=== PATIENT | female | born 1970 | race Caucasian/White ===

== ENCOUNTER → 2016-05-24 | Outpatient (REF) | payer BC | LOC: M LAB REF 13:00 | PROVIDERS: ATTEND Nurse Practitioner Women's Health | DX: M54.5 Low back pain (principal); Z12.4 Encounter for screening for malignant neoplasm of cervix ==

== ENCOUNTER → 2016-09-19 | Outpatient (REF) | payer BC ==
[2016-09-19 11:44] LABS: BASO % 0.6 % (0.0-1.0); EOS # 0.4 K/mm3 (0.0-0.50); EOS % 4.3 % (0.0-3.0); LARGE UNSTAINED CELL # 0.1 K/mm3 (0.0-0.4); LARGE UNSTAINED CELL % 1.1 % (0.0-4.0); LYMPH # 1.7 K/mm3 (1.5-4.5); LYMPH % 20.8 % (24.0-44.0); MEAN CORPUSCULAR HEMOGLOBIN 30.6 pg (27.0-33.0); MEAN CORPUSCULAR VOLUME 90.1 fl (80.0-96.0); MONO # 0.4 K/mm3 (0.0-0.8); MONO % 5.2 % (0.0-5.0); NEUTROPHILS # 5.5 K/mm3 (1.8-7.7); PLATELET COUNT, AUTOMATED 248 k/mm3 (150-450); RED CELL DISTRIBUTION WIDTH 12.8 % (11.5-14.5); WHITE BLOOD COUNT 8.1 K/mm3 (4.0-10.0)
[2016-09-19 12:14] LABS: ERYTHROCYTE SEDIMENTATION RATE 4 mm/hr (0-20)
[2016-09-19 12:40] LABS: ALBUMIN/GLOBULIN RATIO 1.18 (1.00-1.93); ALKALINE PHOSPHATASE 57 U/L (45-117); ALT/SGPT 22 U/L (12-78); ANION GAP 6 MEQ/L (8-16); AST/SGOT 13 U/L (15-37); BILIRUBIN,TOTAL 0.9 MG/DL (0.2-1.0); BLOOD UREA NITROGEN 11 MG/DL (7-18); CALCIUM LEVEL 8.8 MG/DL (8.5-10.1); CARBON DIOXIDE LEVEL 30 MEQ/L (21-32); CHLORIDE LEVEL 103 MEQ/L (98-107); CREATININE FOR GFR 0.77 MG/DL (0.55-1.02); GLOMERULAR FILTRATION RATE > 60.0 (>58); GLUCOSE, FASTING 81 MG/DL (70-105); POTASSIUM SERUM 3.9 MEQ/L (3.5-5.1); SODIUM LEVEL 139 MEQ/L (136-145); TOTAL PROTEIN 7.4 GM/DL (6.4-8.2)
== END ==
LOC: M LABNEURO 11:12
PROVIDERS: ATTEND Psychiatry & Neurology Neurology
DX: R51 Headache (principal)

== ENCOUNTER → 2017-04-30 | Outpatient (REF) | payer BC ==
[2017-04-30 16:04] LABS: HEMATOCRIT 36.9 % (36.0-47.0); HEMOGLOBIN 12.7 g/dl (12.0-16.0); MEAN CORPUSCULAR HEMOGLOBIN 28.8 pg (27.0-33.0); MEAN CORPUSCULAR HGB CONC 34.4 g/dl (32.0-36.5); MEAN CORPUSCULAR VOLUME 83.7 fl (80.0-96.0); PLATELET COUNT, AUTOMATED 246 10^3/uL (150-450); RED BLOOD COUNT 4.41 10^6/uL (4.00-5.40); RED CELL DISTRIBUTION WIDTH 12.4 % (11.5-14.5); WHITE BLOOD COUNT 5.9 10^3/uL (4.0-10.0)
[2017-04-30 16:30] LABS: ALBUMIN/GLOBULIN RATIO 1.21 (1.00-1.93); ALKALINE PHOSPHATASE 66 U/L (45-117); ALT/SGPT 23 U/L (12-78); AMYLASE 49 U/L (25-115); ANION GAP 7 MEQ/L (8-16); AST/SGOT 19 U/L (7-37); BILIRUBIN,TOTAL 0.8 MG/DL (0.2-1.0); BLOOD UREA NITROGEN 14 MG/DL (7-18); CALCIUM LEVEL 8.6 MG/DL (8.5-10.1); CARBON DIOXIDE LEVEL 31 MEQ/L (21-32); CHLORIDE LEVEL 101 MEQ/L (98-107); CREATININE FOR GFR 0.97 MG/DL (0.55-1.30); GLOMERULAR FILTRATION RATE > 60.0 (>58); GLUCOSE, FASTING 95 MG/DL (70-100); POTASSIUM SERUM 3.6 MEQ/L (3.5-5.1); SODIUM LEVEL 139 MEQ/L (136-145); TOTAL PROTEIN 7.3 GM/DL (6.4-8.2)
[2017-04-30 16:33] LABS: ESTIMATED AVERAGE GLUCOSE 105 MG/DL (60-110); HEMOGLOBIN A1c 5.3 %
== END ==
LOC: M LABDRAW1 15:34
DX: R10.2 Pelvic and perineal pain (principal)
CPT/HCPCS: 82150

== ENCOUNTER → 2017-05-03 | Outpatient (CLI) | payer BC ==
[~2017-05-03] MED LIST: GASTROGRAFIN SOLUTION 30ML (Q9963) As Ordered; ISOVUE-370 76% 100ML VIAL (Q9967) As Ordered
== END ==
LOC: M RAD 13:41
DX: R10.9 Unspecified abdominal pain (principal)
CPT/HCPCS: Q9963

== ENCOUNTER → 2018-02-05 | Outpatient (REF) | payer BC ==
[2018-02-05 16:08] LABS: APPEARANCE, URINE CLEAR (CLEAR); BACTERIA, URINE AUTO NEGATIVE (NEGATIVE); BILIRUBIN, URINE AUTO NEGATIVE (NEGATIVE); BLOOD, URINE BLOOD NEGATIVE (NEGATIVE); COLOR, URINE YELLOW (YELLOW); GLUCOSE, URINE (UA) AUTO NEGATIVE (NEGATIVE); KETONE, URINE AUTO NEGATIVE (NEGATIVE); LEUKOCYTE ESTERASE, URINE AUTO NEGATIVE (NEGATIVE); MUCUS, URINE SMALL (NEGATIVE); NITRITE, URINE AUTO NEGATIVE (NEGATIVE); PROTEIN, URINE AUTO NEGATIVE (NEGATIVE); RBC, URINE AUTO 1 /HPF (0-3); SPECIFIC GRAVITY URINE AUTO 1.013 (1.002-1.035); SQUAMOUS EPITHELIAL CELL UR AU 1 /HPF (0-6); UROBILINOGEN, URINE AUTO 0.2 mg/dL (0.0-2.0); WBC, URINE AUTO 0 /HPF (0-3)
== END ==
LOC: M LAB REF 15:39
DX: N39.0 Urinary tract infection, site not specified (principal)

== ENCOUNTER → 2018-03-21 | Outpatient (REF) | payer BC | LOC: M LAB REF 11:59 | PROVIDERS: ATTEND Physician Assistant | DX: J02.9 Acute pharyngitis, unspecified (principal) ==

== ENCOUNTER → 2018-06-12 | Outpatient (CLI) | payer BC ==
[2018-06-12 08:12] LABS: HEMOGLOBIN 14.5 g/dl (12.0-15.5); MEAN CORPUSCULAR HEMOGLOBIN 31.4 pg (27.0-33.0); MEAN CORPUSCULAR HGB CONC 35.4 g/dl (32.0-36.5); MEAN CORPUSCULAR VOLUME 88.7 fl (80.0-96.0); PLATELET COUNT, AUTOMATED 273 10^3/uL (150-450); RED BLOOD COUNT 4.62 10^6/uL (4.00-5.40)
[2018-06-12 08:46] LABS: ALBUMIN 3.9 GM/DL (3.2-5.2); ALT/SGPT 29 U/L (12-78); BILIRUBIN,TOTAL 0.9 MG/DL (0.2-1.0); BLOOD UREA NITROGEN 12 MG/DL (7-18); CALCIUM LEVEL 8.7 MG/DL (8.5-10.1); CARBON DIOXIDE LEVEL 31 MEQ/L (21-32); CHLORIDE LEVEL 102 MEQ/L (98-107); CHOLESTEROL LEVEL 162 MG/DL (<200); CHOLESTEROL RISK RATIO 2.382 (<5); GLOMERULAR FILTRATION RATE > 60.0 (>58); GLUCOSE, FASTING 93 MG/DL (70-100); HDL CHOLESTEROL 68 MG/DL (>40); IRON (FE) 89 UG/DL (50-170); LDL CHOLESTEROL 83 MG/DL (<100); NON-HDL-C 94 MG/DL; PERCENT SATURATION 21.5 % (13.2-45.0); SODIUM LEVEL 140 MEQ/L (136-145); TOTAL IRON BINDING CAPACITY 413 UG/DL (250-450); TOTAL PROTEIN 7.2 GM/DL (6.4-8.2); TRIGLYCERIDES LEVEL 57 MG/DL (<150)
[2018-06-12 08:48] LABS: TOTAL 25(OH) VITAMIN D 52.7 NG/ML (30.0-100.0)
[2018-06-12 08:49] LABS: FOLLICLE STIMULATING HORMONE 12.2 mIU/mL; LUTEINIZING HORMONE 5.4 mIU/mL; VITAMIN B12 LEVEL 954 PG/ML (247-911)
== END ==
LOC: M LAB 07:29
PROVIDERS: ATTEND Family Medicine
DX: I10 Essential (primary) hypertension (principal); E03.9 Hypothyroidism, unspecified

== ENCOUNTER → 2018-07-26 | Outpatient (CLI) | payer BC ==
[2018-07-26 08:04] LABS: HEMATOCRIT 38.4 % (36.0-47.0); HEMOGLOBIN 13.3 g/dl (12.0-15.5); MEAN CORPUSCULAR HEMOGLOBIN 30.6 pg (27.0-33.0); MEAN CORPUSCULAR HGB CONC 34.6 g/dl (32.0-36.5); MEAN CORPUSCULAR VOLUME 88.5 fl (80.0-96.0); PLATELET COUNT, AUTOMATED 247 10^3/uL (150-450); RED BLOOD COUNT 4.34 10^6/uL (4.00-5.40); WHITE BLOOD COUNT 5.8 10^3/uL (4.0-10.0)
[2018-07-26 08:18] LABS: HEMOGLOBIN A1c 5.1 %
--- NOTE | 2018-07-26 08:22 | REP ---
Clinical: Chest/ shoulder pain and history of primary hypertension. Comparison: 08/27/2015 . Technique: PA and lateral. Findings: The mediastinum and cardiac silhouette are normal. The lung thibodeaux are clear and without acute consolidation, effusion, or pneumothorax. The skeletal structures are intact and normal. Impression: 1. No acute cardiopulmonary process. Electronically Signed by Lopez Quiroz MD 07/26/2018 08:13 A
--- NOTE | 2018-07-26 08:24 | REP ---
Clinical: Bilateral shoulder pain . Technique: Internal rotation, external rotation, and Y view of the right and left shoulder . Findings: No acute fracture or dislocation. The acromioclavicular and glenohumeral joints are intact. No periarticular calcifications or degenerative changes are appreciated. Sub acromial space is normal. Surrounding soft tissues are unremarkable. Impression: Normal bilateral shoulder radiographs. Electronically Signed by Lopez Quiroz MD 07/26/2018 08:14 A
[2018-07-26 08:28] LABS: ERYTHROCYTE SEDIMENTATION RATE 8 mm/hr (0-20)
[2018-07-26 08:37] LABS: ALT/SGPT 31 U/L (12-78); BILIRUBIN,TOTAL 0.7 MG/DL (0.2-1.0); BLOOD UREA NITROGEN 10 MG/DL (7-18); CALCIUM LEVEL 8.5 MG/DL (8.5-10.1); CARBON DIOXIDE LEVEL 29 MEQ/L (21-32); CHLORIDE LEVEL 106 MEQ/L (98-107); CHOLESTEROL LEVEL 155 MG/DL (<200); CHOLESTEROL RISK RATIO 2.214 (<5); CREATININE FOR GFR 0.88 MG/DL (0.55-1.30); GLOMERULAR FILTRATION RATE > 60.0 (>58); GLUCOSE, FASTING 90 MG/DL (70-100); HDL CHOLESTEROL 70 MG/DL (>40); LDL CHOLESTEROL 73 MG/DL (<100); NON-HDL-C 85 MG/DL; POTASSIUM SERUM 3.9 MEQ/L (3.5-5.1); RHEUMATOID FACTOR QUANT < 10.0 IU/ML (<15.0); SODIUM LEVEL 141 MEQ/L (136-145); TOTAL PROTEIN 6.8 GM/DL (6.4-8.2); TRIGLYCERIDES LEVEL 59 MG/DL (<150)
--- NOTE | 2018-07-26 16:31 | ECGEPIP ---
Stationary ECG Study [facility] Test Date: 2018-07-26 Pat Name: ROSI CHAN Department: Room: - Gender: F Electrical Manager: : 1970 Requested By: Dominick Kathleen Order Number: [id number] Reading MD: Filiberto Wiley Measurements Intervals [place] Rate: 48 P: 31 TN: 179 QRS: 34 QRSD: 82 T: 44 QT: 476 QTc: 428 Interpretive Statements Sinus bradycardia Delayed anterior R wave progression No significant change when compared to prior tracing of 08/27/2015 Electronically Signed On 07-26-2018 16:30:42 EDT by Filiberto Wiley
== END ==
LOC: M LAB 07:01
PROVIDERS: ATTEND Family Medicine
DX: I10 Essential (primary) hypertension (principal); M06.9 Rheumatoid arthritis, unspecified; E03.9 Hypothyroidism, unspecified; M25.519 Pain in unspecified shoulder

== ENCOUNTER → 2018-10-07 | Outpatient (CLI) | payer BC ==
[2018-10-07 07:49] LABS: HEMATOCRIT 37.1 % (36.0-47.0); HEMOGLOBIN 12.7 g/dl (12.0-15.5); MEAN CORPUSCULAR HEMOGLOBIN 30.8 pg (27.0-33.0); MEAN CORPUSCULAR HGB CONC 34.2 g/dl (32.0-36.5); PLATELET COUNT, AUTOMATED 229 10^3/uL (150-450); RED BLOOD COUNT 4.12 10^6/uL (4.00-5.40); WHITE BLOOD COUNT 7.3 10^3/uL (4.0-10.0)
[2018-10-07 08:21] LABS: IRON (FE) 52 UG/DL (50-170); PERCENT SATURATION 13.4 % (13.2-45.0); RHEUMATOID FACTOR QUANT < 10.0 IU/ML (<15.0); TOTAL IRON BINDING CAPACITY 388 UG/DL (250-450); URIC ACID 4.5 MG/DL (2.6-6.0)
[2018-10-07 08:23] LABS: ERYTHROCYTE SEDIMENTATION RATE 9 mm/hr (0-20)
--- NOTE | 2018-10-07 09:51 | REP ---
Bilateral knees: Left knee five views : There is no fracture or dislocation. Mineralization and joint spaces are normal. There are no calcifications or foreign bodies. Impression: Negative left knee. Right knee five views : There is no fracture or dislocation. Mineralization and joint spaces are normal. There are no calcifications or foreign bodies. Impression: Negative right knee . Electronically Signed by Matheus Nova MD 10/07/2018 09:42 A
[2018-10-09 00:06] LABS: Lyme Disease IgG/IgM Antibodie <0.91 ISR (0.00-0.90); Lyme Disease IgM Ab Quantitati <0.80 index (0.00-0.79)
== END ==
LOC: M LAB 07:27
PROVIDERS: ATTEND Family Medicine
DX: D64.9 Anemia, unspecified (principal); M25.561 Pain in right knee; M25.562 Pain in left knee

== ENCOUNTER → 2018-11-01 | Outpatient (REF) | payer BC ==
[2018-11-01 11:39] LABS: APPEARANCE, URINE CLEAR (CLEAR); BACTERIA, URINE AUTO 1+ (NEGATIVE); BILIRUBIN, URINE AUTO NEGATIVE (NEGATIVE); BLOOD, URINE BLOOD NEGATIVE (NEGATIVE); COLOR, URINE YELLOW (YELLOW); GLUCOSE, URINE (UA) AUTO NEGATIVE (NEGATIVE); KETONE, URINE AUTO NEGATIVE (NEGATIVE); LEUKOCYTE ESTERASE, URINE AUTO NEGATIVE (NEGATIVE); NITRITE, URINE AUTO NEGATIVE (NEGATIVE); PROTEIN, URINE AUTO NEGATIVE (NEGATIVE); RBC, URINE AUTO 1 /HPF (0-3); SPECIFIC GRAVITY URINE AUTO 1.011 (1.002-1.035); SQUAMOUS EPITHELIAL CELL UR AU 1 /HPF (0-6); UROBILINOGEN, URINE AUTO 0.2 mg/dL (0.0-2.0); WBC, URINE AUTO 0 /HPF (0-3)
== END ==
LOC: M LAB REF 11:28
PROVIDERS: ATTEND Family Medicine
DX: N39.0 Urinary tract infection, site not specified (principal)

== ENCOUNTER → 2019-09-10 | Outpatient (REF) | payer BC ==
[2019-09-10 17:49] LABS: AMORPHOUS SEDIMENT LARGE (NEGATIVE); APPEARANCE, URINE TURBID (CLEAR); BACTERIA, URINE AUTO NEGATIVE (NEGATIVE); BILIRUBIN, URINE AUTO NEGATIVE (NEGATIVE); BLOOD, URINE BLOOD NEGATIVE (NEGATIVE); CALCIUM OXALATE CRYSTALS SMALL; COLOR, URINE AMBER (YELLOW); GLUCOSE, URINE (UA) AUTO NEGATIVE (NEGATIVE); KETONE, URINE AUTO NEGATIVE (NEGATIVE); LEUKOCYTE ESTERASE, URINE AUTO NEGATIVE (NEGATIVE); MUCUS, URINE LARGE (NEGATIVE); NITRITE, URINE AUTO NEGATIVE (NEGATIVE); PROTEIN, URINE AUTO NEGATIVE (NEGATIVE); RBC, URINE AUTO 1 /HPF (0-3); SPECIFIC GRAVITY URINE AUTO 1.025 (1.002-1.035); SQUAMOUS EPITHELIAL CELL UR AU 2 /HPF (0-6); UROBILINOGEN, URINE AUTO 0.2 mg/dL (0.0-2.0); WBC, URINE AUTO 1 /HPF (0-3)
== END ==
LOC: M LAB REF 17:00
PROVIDERS: ATTEND Obstetrics & Gynecology
DX: N39.0 Urinary tract infection, site not specified (principal)

== ENCOUNTER → 2020-07-13 | Outpatient (CLI) | payer BC ==
[2020-07-13 07:16] LABS: HEMOGLOBIN 13.6 g/dl (12.0-15.5); MEAN CORPUSCULAR HEMOGLOBIN 31.2 pg (27.0-33.0); MEAN CORPUSCULAR HGB CONC 34.9 g/dl (32.0-36.5); MEAN CORPUSCULAR VOLUME 89.4 fl (80.0-96.0); PLATELET COUNT, AUTOMATED 246 10^3/uL (150-450); RED BLOOD COUNT 4.36 10^6/uL (4.00-5.40); WHITE BLOOD COUNT 6.6 10^3/uL (4.0-10.0)
[2020-07-13 07:38] LABS: HEMOGLOBIN A1c 4.8 %
[2020-07-13 07:56] LABS: ALBUMIN 3.8 GM/DL (3.2-5.2); ALT/SGPT 26 U/L (12-78); BILIRUBIN,TOTAL 0.8 MG/DL (0.2-1.0); BLOOD UREA NITROGEN 12 MG/DL (7-18); CALCIUM LEVEL 8.8 MG/DL (8.5-10.1); CARBON DIOXIDE LEVEL 31 MEQ/L (21-32); CHLORIDE LEVEL 105 MEQ/L (98-107); CHOLESTEROL LEVEL 147 MG/DL (<200); CHOLESTEROL RISK RATIO 1.909 (<5); CREATININE FOR GFR 0.79 MG/DL (0.55-1.30); GLOMERULAR FILTRATION RATE > 60.0 (>58); GLUCOSE, FASTING 94 MG/DL (70-100); HDL CHOLESTEROL 77 MG/DL (>40); LDL CHOLESTEROL 59 MG/DL (<100); NON-HDL-C 70 MG/DL; SODIUM LEVEL 142 MEQ/L (136-145); TOTAL PROTEIN 6.8 GM/DL (6.4-8.2); TRIGLYCERIDES LEVEL 54 MG/DL (<150)
[2020-07-13 10:44] LABS: TOTAL 25(OH) VITAMIN D 46.3 NG/ML (30.0-100.0)
== END ==
LOC: M LAB 06:50
PROVIDERS: ATTEND Family Medicine
DX: R53.83 Other fatigue (principal); I10 Essential (primary) hypertension; E03.9 Hypothyroidism, unspecified

== ENCOUNTER → 2020-10-11 | Outpatient (CLI) | payer BC ==
--- NOTE | 2020-10-11 16:04 | REP ---
INDICATION: EXCESSIVE BLEEDING, MENES. COMPARISON: 11/09/2016. TECHNIQUE: Transabdominal and transvaginal scanning performed. FINDINGS: Uterine dimensions are 8.4 x 4.1 x 6.5 cm. Endometrial echo is 4 mm in AP dimension and centrally placed. A hypoechoic area in the lower uterine segment demonstrates distal shadowing and measures 2.3 cm in diameter. This may represent a fibroid, adenomyoma or cervical mass. There is no well-defined junctional zone which may represent adenomyosis. The bladder measures 9.7 x 8.2 x 9.0cm. The right ovary has dimensions of 2.3 x 1.8 x 1.9 cm. It's Doppler flow is normal with a resistive index of 0.65. The left ovary dimensions are 4.4 x 1.9 x 2.6 cm. It's Doppler flow was normal with resistive index of 0.59. A dominant follicle of the left ovary measures 1.9 x 1.3 x 1.4 cm. No free fluid is seen in the cul-de-sac. IMPRESSION: Diffuse heterogeneous echotexture of the uterus with ill-defined junctional zone, may indicate adenomyosis. Focal hypoechoic area lower uterine segment 2.3 cm in diameter, may represent a myoma, adenomyoma or cervical mass. <Electronically signed by Matheus Augustin > 10/11/20 [id number]
== END ==
LOC: M RAD 14:44
PROVIDERS: ATTEND Obstetrics & Gynecology
DX: N92.1 Excessive and frequent menstruation with irregular cycle (principal); R93.89 Abnormal findings on diagnostic imaging of other specified body structures

== ENCOUNTER → 2020-11-14 | Outpatient (CLI) | payer BC ==
[~2020-11-14] MED LIST changes: +AMLO25TA PO; +ATOR1TAB21 PO; +D31000TA2 PO; +DEBL1TAB PO; +FLON1SPR; -GASTROGRAFIN SOLUTION 30ML (Q9963) As Ordered; +IFERCAP PO; -ISOVUE-370 76% 100ML VIAL (Q9967) As Ordered; +MAGN400C2 PO; +PANT40TA29 PO; +PROBCAP14 PO; +TOPR50TA PO; +VITA100T39 PO; +VITAMIN C PO; +VITMTA PO
--- NOTE | 2020-11-14 08:52 | REP ---
INDICATION: HTN, PREOP/ LABS 1ST, EKG 2ND, RAD 3RD COMPARISON: 07/26/2018 TECHNIQUE: PA and lateral. FINDINGS: The mediastinum and cardiac silhouette are normal. The lung thibodeaux are clear and without acute consolidation, effusion, or pneumothorax. The skeletal structures are intact and normal. IMPRESSION: No acute cardiopulmonary process. <Electronically signed by Lopez Quiroz > 11/14/20 [id number]
[2020-11-14 09:30] LABS: HEMOGLOBIN 10.3 g/dl (12.0-15.5); MEAN CORPUSCULAR HEMOGLOBIN 25.8 pg (27.0-33.0); MEAN CORPUSCULAR HGB CONC 31.2 g/dl (32.0-36.5); MEAN CORPUSCULAR VOLUME 82.7 fl (80.0-96.0); PLATELET COUNT, AUTOMATED 315 10^3/uL (150-450); RED BLOOD COUNT 3.99 10^6/uL (4.00-5.40); WHITE BLOOD COUNT 5.2 10^3/uL (4.0-10.0)
[2020-11-14 09:41] LABS: INR 1.01; PROTHROMBIN TIME 13.7 SECONDS (12.7-14.5)
[2020-11-14 10:02] LABS: ALBUMIN 3.8 GM/DL (3.2-5.2); ALT/SGPT 23 U/L (12-78); BILIRUBIN,TOTAL 0.6 MG/DL (0.2-1.0); BLOOD UREA NITROGEN 12 MG/DL (7-18); CALCIUM LEVEL 8.4 MG/DL (8.5-10.1); CARBON DIOXIDE LEVEL 29 MEQ/L (21-32); CHLORIDE LEVEL 110 MEQ/L (98-107); CHOLESTEROL LEVEL 146 MG/DL (<200); CHOLESTEROL RISK RATIO 2.433 (<5); CREATININE FOR GFR 0.82 MG/DL (0.55-1.30); GLOMERULAR FILTRATION RATE > 60.0 (>58); GLUCOSE, FASTING 90 MG/DL (70-100); HDL CHOLESTEROL 60 MG/DL (>40); IRON (FE) 32 UG/DL (50-170); LDL CHOLESTEROL 77 MG/DL (<100); NON-HDL-C 86 MG/DL; SODIUM LEVEL 143 MEQ/L (136-145); TOTAL IRON BINDING CAPACITY 459 UG/DL (250-450); TOTAL PROTEIN 7.2 GM/DL (6.4-8.2); TRIGLYCERIDES LEVEL 47 MG/DL (<150)
--- NOTE | 2020-11-15 08:12 | ECGEPIP ---
[facility] Test Date: 2020-11-14 Pat Name: ROSI CHAN Department: Room: - Gender: Female Dba Manager: DREW : 1970 Requested By: Dominick Kathleen Order Number: [id number] Reading MD: Pablo Romo Measurements Intervals [place] Rate: 50 P: 50 WI: 190 QRS: 53 QRSD: 70 T: 68 QT: 458 QTc: 417 Interpretive Statements sinus bradycardia Low limb voltages with QS pattern V1 and V2; body habitus versus pulmonary d disease. Rule out prior septal infarction Nonspecific ST/T wave abnormalities Subtle change in precordial lead placement but otherwise unchanged from 07/26/18 Electronically Signed on 11-15-2020 8:11:40 EDT by Pablo Romo
[2020-11-15 12:52] LABS: VITAMIN B12 LEVEL 612 PG/ML (247-911)
[2020-11-15 13:26] LABS: TOTAL 25(OH) VITAMIN D 51.8 NG/ML (30.0-100.0)
== END ==
LOC: M LAB 08:14
PROVIDERS: ATTEND Family Medicine
DX: Z01.818 Encounter for other preprocedural examination (principal); I10 Essential (primary) hypertension; R53.83 Other fatigue

== ENCOUNTER → 2020-11-20 | Outpatient (CLI) | payer BC | LOC: M LABSMTC 09:18 | PROVIDERS: ATTEND Anesthesiology | DX: Z01.818 Encounter for other preprocedural examination (principal); Z20.822 Contact with and (suspected) exposure to COVID-19 ==

== ENCOUNTER 2020-11-25 11:39 | Day surgery (SDC) | payer BC ==
[~2020-11-25] VITALS: Ht 152.4 cm; Wt 55.4 kg
[~2020-11-25 11:39] MED LIST changes: +LR 1,000 ML IV ONE
[2020-11-25] MEDS ORDERED: propofoL 200 MG/20 ML VIAL As Ordered ONE (14:12)
[2020-11-25] MEDS ORDERED: KETOROLAC 60MG 2ML VIAL As Ordered ONE (14:12)
[2020-11-25] MEDS ORDERED: ONDANSETRON 4MG/2ML VIAL As Ordered ONE (14:12)
[2020-11-25] MEDS ORDERED: MIDAZOLAM INJ 2MG/2ML VIAL (J2250 PER 1MG) As Ordered ONE (14:14)
[2020-11-25] MEDS ORDERED: LIDOCAINE 1% MDV 50ML VIAL As Ordered ONE (15:08)
[2020-11-25 16:30] VITALS: BP 143/71
--- NOTE | 2020-11-26 10:13 | RO ---
OPERATIVE NOTE DATE OF OPERATION: 11/25/2020 PREOPERATIVE DIAGNOSIS/INDICATION FOR SURGERY: Postmenopausal bleeding with abnormal sonogram showing 2 cm lesion. POSTOPERATIVE DIAGNOSIS: No significant lesion seen, visible atrophy. PROCEDURE: D and C, hysteroscopy, MyoSure with paracervical block. SURGEON: MINDA MARTINES MD [employer] SCENE TECHNICIAN: None. ANESTHESIA: Patient had sedation and then elected for local so had a paracervical block that I placed. BRIEF DESCRIPTION OF PROCEDURE AND FINDINGS: Haley was brought to the Operating Room, she was sedated, prepped and positioned and then a paracervical block placed at 2, 4, 8 and 10 on the cervix with 5 ccs each at each location, so a total of 20 ccs of 1% Lidocaine without. We then waited a full minute for that to set up and carefully grasped the cervix and dilated in order to allow introduction of the MyoSure hysteroscope which was then placed and the cervix visualized, and the endometrial cavity and endocervical cavity visualized. As documented in the operative photos, by in large the cavity was empty and atrophic. There is a little bit of erythema and friability consistent with her history of postmenopausal spotting and consistent with her postmenopausal state. There was no significant lesion. There were some folds within the cervix that I did picture. They have really a normal appearance, we did sample all that, and about a 2 mm endocervical polypoid shaped area which was resected and sent for path but did not look like a significant lesion to me. Of course, the cervix naturally has that folding appearance and so really she had a normal postmenopausal appearance on this hysteroscopy. We did use the MyoSure LITE to make sure we got a good sample especially since it is a little gentler when people are under local as well, so we absolutely sampled the endometrium, both anterior and posterior areas and endocervical areas. It was all sent together because there was not really anything visibly abnormal but we did want that microscopic check so we went ahead and sampled circumferentially both endometrially and endocervically and I did a final pass with a curette confirming normal cervical cry but was not aggressive about that again. Patient was nearly sedated and under local, and then the procedure was ended. ESTIMATED BLOOD LOSS FOR PROCEDURE: About 2 ml. FLUID REPLACEMENT: Crystalloid. COMPLICATIONS: None. CONDITION AND DISPOSITION: Haley tolerated the procedure well and was recovering in the Recovery Room in good condition.
== END 2020-11-25 16:56 | disposition home or self-care (01) ==
LOC: M SDC 11:39
PROVIDERS: ATTEND Obstetrics & Gynecology
DX: N85.8 Other specified noninflammatory disorders of uterus (principal); N95.0 Postmenopausal bleeding; I10 Essential (primary) hypertension; R94.31 Abnormal electrocardiogram [ECG] [EKG]; E78.00 Pure hypercholesterolemia, unspecified; R01.1 Cardiac murmur, unspecified; K21.9 Gastro-esophageal reflux disease without esophagitis; M54.2 Cervicalgia; F41.9 Anxiety disorder, unspecified; G43.909 Migraine, unspecified, not intractable, without status migrainosus; F17.290 Nicotine dependence, other tobacco product, uncomplicated; Z88.0 Allergy status to penicillin; Z88.1 Allergy status to other antibiotic agents; Z91.040 Latex allergy status; Z79.899 Other long term (current) drug therapy
CPT/HCPCS: 58558; 64435; 88305; 88313; 88342; J1885; J2250; J2405

== ENCOUNTER → 2020-12-29 | Outpatient (REF) | payer BC ==
[~2020-12-29] MED LIST changes: -LR 1,000 ML IV ONE
[2020-12-29 13:05] LABS: APPEARANCE, URINE CLEAR (CLEAR); BACTERIA, URINE AUTO NEGATIVE (NEGATIVE); BILIRUBIN, URINE AUTO NEGATIVE (NEGATIVE); BLOOD, URINE BLOOD NEGATIVE (NEGATIVE); COLOR, URINE YELLOW (YELLOW); GLUCOSE, URINE (UA) AUTO NEGATIVE (NEGATIVE); KETONE, URINE AUTO NEGATIVE (NEGATIVE); LEUKOCYTE ESTERASE, URINE AUTO NEGATIVE (NEGATIVE); MUCUS, URINE SMALL (NEGATIVE); NITRITE, URINE AUTO NEGATIVE (NEGATIVE); PROTEIN, URINE AUTO NEGATIVE (NEGATIVE); RBC, URINE AUTO 1 /HPF (0-3); SPECIFIC GRAVITY URINE AUTO 1.016 (1.002-1.035); SQUAMOUS EPITHELIAL CELL UR AU 1 /HPF (0-6); UROBILINOGEN, URINE AUTO 0.2 mg/dL (0.0-2.0); WBC, URINE AUTO 0 /HPF (0-3)
== END ==
LOC: M LAB REF 12:31
PROVIDERS: ATTEND Obstetrics & Gynecology
DX: N39.0 Urinary tract infection, site not specified (principal)

== ENCOUNTER → 2021-06-22 | Outpatient (REF) | payer OTHER ==
[~2021-06-22] MED LIST changes: -D31000TA2 PO; +VITA100093 PO
[2021-06-22 16:31] LABS: APPEARANCE, URINE HAZY (CLEAR); BACTERIA, URINE AUTO NEGATIVE (NEGATIVE); BILIRUBIN, URINE AUTO NEGATIVE (NEGATIVE); BLOOD, URINE BLOOD NEGATIVE (NEGATIVE); COLOR, URINE YELLOW (YELLOW); GLUCOSE, URINE (UA) AUTO NEGATIVE (NEGATIVE); KETONE, URINE AUTO NEGATIVE (NEGATIVE); LEUKOCYTE ESTERASE, URINE AUTO NEGATIVE (NEGATIVE); NITRITE, URINE AUTO NEGATIVE (NEGATIVE); PROTEIN, URINE AUTO NEGATIVE (NEGATIVE); RBC, URINE AUTO 0 /HPF (0-3); SPECIFIC GRAVITY URINE AUTO 1.009 (1.002-1.035); SQUAMOUS EPITHELIAL CELL UR AU 0 /HPF (0-6); UROBILINOGEN, URINE AUTO 0.2 mg/dL (0.0-2.0); WBC, URINE AUTO 0 /HPF (0-3)
== END ==
LOC: M LAB REF 16:08
PROVIDERS: ATTEND Obstetrics & Gynecology
DX: N30.00 Acute cystitis without hematuria (principal)

== ENCOUNTER → 2021-07-04 | Outpatient (REF) | payer OTHER ==
[2021-07-04 13:11] LABS: APPEARANCE, URINE HAZY (CLEAR); BACTERIA, URINE AUTO NEGATIVE (NEGATIVE); BILIRUBIN, URINE AUTO NEGATIVE (NEGATIVE); BLOOD, URINE BLOOD NEGATIVE (NEGATIVE); COLOR, URINE YELLOW (YELLOW); GLUCOSE, URINE (UA) AUTO NEGATIVE (NEGATIVE); KETONE, URINE AUTO NEGATIVE (NEGATIVE); LEUKOCYTE ESTERASE, URINE AUTO NEGATIVE (NEGATIVE); MUCUS, URINE SMALL (NEGATIVE); NITRITE, URINE AUTO NEGATIVE (NEGATIVE); PROTEIN, URINE AUTO NEGATIVE (NEGATIVE); RBC, URINE AUTO 0 /HPF (0-3); SPECIFIC GRAVITY URINE AUTO 1.018 (1.002-1.035); SQUAMOUS EPITHELIAL CELL UR AU 4 /HPF (0-6); UROBILINOGEN, URINE AUTO 0.2 mg/dL (0.0-2.0); WBC, URINE AUTO 1 /HPF (0-3)
== END ==
LOC: M LAB REF 12:21
PROVIDERS: ATTEND Obstetrics & Gynecology
DX: R39.89 Other symptoms and signs involving the genitourinary system (principal)

== ENCOUNTER → 2021-08-30 | Outpatient (CLI) | payer OTHER ==
[2021-08-30 08:17] LABS: HEMATOCRIT 41.7 % (36.0-47.0); HEMOGLOBIN 14.6 g/dl (12.0-15.5); MEAN CORPUSCULAR HEMOGLOBIN 31.2 pg (27.0-33.0); MEAN CORPUSCULAR VOLUME 89.1 fl (80.0-96.0); PLATELET COUNT, AUTOMATED 255 10^3/uL (150-450); RED BLOOD COUNT 4.68 10^6/uL (4.00-5.40); WHITE BLOOD COUNT 5.6 10^3/uL (4.0-10.0)
[2021-08-30 08:55] LABS: ALBUMIN 3.9 GM/DL (3.2-5.2); ALT/SGPT 21 U/L (12-78); BILIRUBIN,TOTAL 0.7 MG/DL (0.2-1.0); BLOOD UREA NITROGEN 13 MG/DL (7-18); CALCIUM LEVEL 9.1 MG/DL (8.5-10.1); CARBON DIOXIDE LEVEL 31 MEQ/L (21-32); CHLORIDE LEVEL 108 MEQ/L (98-107); CHOLESTEROL LEVEL 157 MG/DL (<200); CHOLESTEROL RISK RATIO 2.242 (<5); CREATININE FOR GFR 0.87 MG/DL (0.55-1.30); GLOMERULAR FILTRATION RATE > 60.0 (>58); GLUCOSE, FASTING 102 MG/DL (70-100); HDL CHOLESTEROL 70 MG/DL (>40); IRON (FE) 158 UG/DL (50-170); LDL CHOLESTEROL 77 MG/DL (<100); NON-HDL-C 87 MG/DL; PERCENT SATURATION 39.1 % (13.2-45.0); SODIUM LEVEL 143 MEQ/L (136-145); TOTAL IRON BINDING CAPACITY 404 UG/DL (250-450); TOTAL PROTEIN 7.1 GM/DL (6.4-8.2); TRIGLYCERIDES LEVEL 50 MG/DL (<150)
[2021-08-30 08:56] LABS: VITAMIN B12 LEVEL 783 PG/ML (247-911)
[2021-08-30 10:38] LABS: HEMOGLOBIN A1c 5.2 %
== END ==
LOC: M LAB 07:40
PROVIDERS: ATTEND Family Medicine
DX: D64.9 Anemia, unspecified (principal)

== ENCOUNTER → 2021-12-21 | Outpatient (CLI) | payer OTHER ==
[2021-12-21 08:10] LABS: HEMATOCRIT 41.8 % (36.0-47.0); HEMOGLOBIN 14.5 g/dl (12.0-15.5); MEAN CORPUSCULAR HEMOGLOBIN 31.5 pg (27.0-33.0); MEAN CORPUSCULAR HGB CONC 34.7 g/dl (32.0-36.5); MEAN CORPUSCULAR VOLUME 90.9 fl (80.0-96.0); PLATELET COUNT, AUTOMATED 263 10^3/uL (150-450); WHITE BLOOD COUNT 4.8 10^3/uL (4.0-10.0)
[2021-12-21 08:51] LABS: ALT/SGPT 24 U/L (12-78); BILIRUBIN,TOTAL 0.8 MG/DL (0.2-1.0); BLOOD UREA NITROGEN 14 MG/DL (7-18); CARBON DIOXIDE LEVEL 32 MEQ/L (21-32); CHLORIDE LEVEL 105 MEQ/L (98-107); CHOLESTEROL LEVEL 169 MG/DL (<200); CHOLESTEROL RISK RATIO 2.414 (<5); CREATININE FOR GFR 0.82 MG/DL (0.55-1.30); GLOMERULAR FILTRATION RATE > 60.0 (>51); GLUCOSE, FASTING 99 MG/DL (70-100); HDL CHOLESTEROL 70 MG/DL (>40); IRON (FE) 165 UG/DL (50-170); LDL CHOLESTEROL 87 MG/DL (<100); NON-HDL-C 99 MG/DL; PERCENT SATURATION 44.8 % (13.2-45.0); POTASSIUM SERUM 3.8 MEQ/L (3.5-5.1); SODIUM LEVEL 139 MEQ/L (136-145); TOTAL IRON BINDING CAPACITY 368 UG/DL (250-450); TOTAL PROTEIN 7.4 GM/DL (6.4-8.2); TRIGLYCERIDES LEVEL 58 MG/DL (<150)
[2021-12-21 09:26] LABS: TOTAL 25(OH) VITAMIN D 58.3 NG/ML (30.0-100.0); TOTAL T3 94.9 NG/DL (60.0-181.0); VITAMIN B12 LEVEL 909 PG/ML (247-911)
== END ==
LOC: M LAB 07:24
PROVIDERS: ATTEND Family Medicine
DX: D64.9 Anemia, unspecified (principal); R53.83 Other fatigue; E03.9 Hypothyroidism, unspecified

== ENCOUNTER → 2022-04-17 | Outpatient (REF) | payer OTHER | LOC: M PLALAB 11:50 | PROVIDERS: ATTEND Nurse Practitioner Family | DX: Z12.4 Encounter for screening for malignant neoplasm of cervix (principal) ==

== ENCOUNTER → 2022-06-01 | Outpatient (CLI) | payer OTHER ==
[2022-06-01 16:42] LABS: RHEUMATOID FACTOR QUANT < 3.5 IU/ML (<14)
[2022-06-01 16:44] LABS: FREE THYROXINE INDEX 3.2 % (1.3-4.8); T UPTAKE 33.8 % (22.5-37.0); THYROID STIMULATING HORMONE 2.194 uIU/ML (0.55-4.78); THYROXINE (T4) 9.5 UG/DL (4.5-10.9)
[2022-06-01 16:45] LABS: FOLATE > 24.0 NG/ML (>5.4); VITAMIN B12 LEVEL 652 PG/ML (211-911)
[2022-06-01 16:46] LABS: HEMOGLOBIN A1c 5.4 % (4.0-6.0)
== END ==
LOC: M PLALAB 13:48
PROVIDERS: ATTEND Psychiatry & Neurology Neurology
DX: E07.9 Disorder of thyroid, unspecified (principal); E53.8 Deficiency of other specified B group vitamins; E56.0 Deficiency of vitamin E; E11.9 Type 2 diabetes mellitus without complications; G62.9 Polyneuropathy, unspecified

== ENCOUNTER → 2022-06-01 | Outpatient (CLI) | payer OTHER | LOC: M PLALAB 13:44 | PROVIDERS: ATTEND Nurse Practitioner Family | DX: Z12.9 Encounter for screening for malignant neoplasm, site unspecified (principal); Z80.3 Family history of malignant neoplasm of breast ==

== ENCOUNTER → 2022-10-05 | Outpatient (CLI) | payer OTHER ==
[2022-10-05 10:51] LABS: HEMATOCRIT 42.7 % (36.0-47.0); HEMOGLOBIN 14.5 g/dl (12.0-15.5); MEAN CORPUSCULAR HEMOGLOBIN 31.2 pg (27.0-33.0); MEAN CORPUSCULAR VOLUME 91.8 fl (80.0-96.0); PLATELET COUNT, AUTOMATED 269 10^3/uL (150-450); RED BLOOD COUNT 4.65 10^6/uL (4.00-5.40); WHITE BLOOD COUNT 5.9 10^3/uL (4.0-10.0)
[2022-10-05 11:16] LABS: IRON (FE) 100 UG/DL (50-170)
[2022-10-05 11:18] LABS: ANTI-STREPTOLYSIN O QUANT 54.8 IU/ML (<195); PERCENT SATURATION 28.5 % (13.2-45.0); RHEUMATOID FACTOR QUANT < 3.5 IU/ML (<14); THYROID STIMULATING HORMONE 2.439 uIU/ML (0.55-4.78); TOTAL IRON BINDING CAPACITY 351 UG/DL (250-425)
[2022-10-05 11:21] LABS: ERYTHROCYTE SEDIMENTATION RATE 2 mm/hr (0-30)
[2022-10-06 13:10] LABS: ANTINUCLEAR ANTIBODIES DIRECT Negative (Negative)
== END ==
LOC: M PLALAB 07:30
PROVIDERS: ATTEND Family Medicine
DX: D64.9 Anemia, unspecified (principal); R53.83 Other fatigue; E03.9 Hypothyroidism, unspecified

== ENCOUNTER → 2022-11-03 | Outpatient (CLI) | payer OTHER | LOC: M SOG 15:23 | PROVIDERS: ATTEND Orthopaedic Surgery | DX: M16.0 Bilateral primary osteoarthritis of hip (principal); M54.50 Low back pain, unspecified; R10.2 Pelvic and perineal pain ==

== ENCOUNTER → 2022-11-13 | Outpatient (CLI) | payer OTHER | LOC: M PLAIMG 10:49 | PROVIDERS: ATTEND Orthopaedic Surgery | DX: M54.50 Low back pain, unspecified (principal); M25.551 Pain in right hip ==

== ENCOUNTER → 2023-04-19 | Outpatient (REF) | payer OTHER, BC | LOC: M SFHCWAGY 15:25 | PROVIDERS: ATTEND Nurse Practitioner Family | DX: Z12.4 Encounter for screening for malignant neoplasm of cervix (principal) ==

== ENCOUNTER → 2023-05-02 | Outpatient (REF) | payer BC, OTHER | LOC: M SFHCWAGY 17:57 | PROVIDERS: ATTEND Obstetrics & Gynecology | DX: R87.810 Cervical high risk human papillomavirus (HPV) DNA test positive (principal) ==

== ENCOUNTER → 2023-08-10 | Outpatient (CLI) | payer BC ==
[2023-08-10 08:18] LABS: HEMOGLOBIN 14.2 g/dl (12.0-15.5); MEAN CORPUSCULAR HEMOGLOBIN 32.1 pg (27.0-33.0); MEAN CORPUSCULAR HGB CONC 35.5 g/dl (32.0-36.5); MEAN CORPUSCULAR VOLUME 90.3 fl (80.0-96.0); PLATELET COUNT, AUTOMATED 248 10^3/uL (150-450); RED BLOOD COUNT 4.43 10^6/uL (4.00-5.40); WHITE BLOOD COUNT 5.7 10^3/uL (4.0-10.0)
[2023-08-10 08:54] LABS: ALBUMIN 3.9 G/DL (3.2-5.2); ALKALINE PHOSPHATASE 69 U/L (46-116); ALT/SGPT 31 U/L (7.0-40); AST/SGOT 15 U/L (<34); BILIRUBIN,TOTAL 0.7 MG/DL (0.3-1.2); BLOOD UREA NITROGEN 14 MG/DL (9-23); CARBON DIOXIDE LEVEL 31 MMOL/L (20-31); CHLORIDE LEVEL 108 MMOL/L (98-107); CHOLESTEROL LEVEL 176 MG/DL (<200); CHOLESTEROL RISK RATIO 2.72 (<5); CREATININE FOR GFR 0.78 MG/DL (0.55-1.30); GLOMERULAR FILTRATION RATE > 60.0 (>51); GLUCOSE, FASTING 104 MG/DL (60-100); HDL CHOLESTEROL 64.6 MG/DL (>40); LDL CHOLESTEROL 97.6 MG/DL (<100); NON-HDL-C 111.4 MG/DL; POTASSIUM SERUM 4.2 MMOL/L (3.5-5.1); SODIUM LEVEL 144 MMOL/L (136-145); TOTAL PROTEIN 6.7 G/DL (5.7-8.2); TRIGLYCERIDES LEVEL 69 MG/DL (<150)
[2023-08-10 08:55] LABS: THYROID STIMULATING HORMONE 2.206 uIU/ML (0.55-4.78)
[2023-08-10 09:11] LABS: HEMOGLOBIN A1c 5.2 % (4.0-6.0)
== END ==
LOC: M LAB 07:39
PROVIDERS: ATTEND Family Medicine
DX: R53.83 Other fatigue (principal); I10 Essential (primary) hypertension; E07.9 Disorder of thyroid, unspecified

== ENCOUNTER → 2023-10-04 | Outpatient (CLI) | payer BC ==
[2023-10-04 08:26] LABS: URIC ACID 4.7 MG/DL (3.1-7.8)
[2023-10-04 08:31] LABS: THYROID STIMULATING HORMONE 3.417 uIU/ML (0.55-4.78)
[2023-10-04 13:47] LABS: RHEUMATOID FACTOR QUANT < 3.5 IU/ML (<14)
[2023-10-07 17:02] LABS: LYME TOTAL ANTIBODY CIA <= 0.90 Index (<=0.90)
== END ==
LOC: M RAD 07:22
PROVIDERS: ATTEND Family Medicine
DX: R53.83 Other fatigue (principal); M19.90 Unspecified osteoarthritis, unspecified site; M10.9 Gout, unspecified

== ENCOUNTER → 2023-10-25 | Outpatient (REF) | payer BC ==
[2023-10-27 16:07] LABS: HPV APTIMA Detected (Not Detected)
== END ==
LOC: M SFHCWAGY 12:09
PROVIDERS: ATTEND Nurse Practitioner Family
DX: Z12.4 Encounter for screening for malignant neoplasm of cervix (principal); B97.7 Papillomavirus as the cause of diseases classified elsewhere; N95.2 Postmenopausal atrophic vaginitis; R87.610 Atypical squamous cells of undetermined significance on cytologic smear of cervix (ASC-US); R87.810 Cervical high risk human papillomavirus (HPV) DNA test positive

== ENCOUNTER → 2024-01-07 | Outpatient (REF) | payer BC | LOC: M SFHCWAGY 12:56 | PROVIDERS: ATTEND Obstetrics & Gynecology | DX: R87.610 Atypical squamous cells of undetermined significance on cytologic smear of cervix (ASC-US) (principal) ==

== ENCOUNTER → 2024-01-11 | Outpatient (CLI) | payer BC ==
[2024-01-11 11:52] LABS: HEMATOCRIT 43.6 % (36.0-47.0); HEMOGLOBIN 14.9 g/dl (12.0-15.5); MEAN CORPUSCULAR HEMOGLOBIN 31.4 pg (27.0-33.0); MEAN CORPUSCULAR HGB CONC 34.2 g/dl (32.0-36.5); MEAN CORPUSCULAR VOLUME 91.8 fl (80.0-96.0); PLATELET COUNT, AUTOMATED 306 10^3/uL (150-450); RED BLOOD COUNT 4.75 10^6/uL (4.00-5.40); WHITE BLOOD COUNT 6.6 10^3/uL (4.0-10.0)
[2024-01-11 12:14] LABS: THYROXINE (T4) 8.4 UG/DL (4.5-10.9); TOTAL IRON BINDING CAPACITY 351 UG/DL (250-425)
[2024-01-11 12:15] LABS: THYROID STIMULATING HORMONE 3.817 uIU/ML (0.55-4.78); TOTAL 25(OH) VITAMIN D 81.6 NG/ML (20.0-100.0)
[2024-01-11 12:16] LABS: IRON (FE) 136 UG/DL (50-170); PERCENT SATURATION 38.7 % (13.2-45.0)
[2024-01-11 12:17] LABS: HEMOGLOBIN A1c 5.1 % (4.0-6.0)
[2024-01-11 12:19] LABS: ALBUMIN 4.1 G/DL (3.2-5.2); ALKALINE PHOSPHATASE 72 U/L (46-116); ALT/SGPT 52 U/L (7.0-40); AST/SGOT 28 U/L (<34); BILIRUBIN,TOTAL 0.6 MG/DL (0.3-1.2); BLOOD UREA NITROGEN 16 MG/DL (9-23); CALCIUM LEVEL 9.7 MG/DL (8.5-10.1); CARBON DIOXIDE LEVEL 32 MMOL/L (20-31); CHLORIDE LEVEL 106 MMOL/L (98-107); CHOLESTEROL LEVEL 189 MG/DL (<200); CHOLESTEROL RISK RATIO 3.35 (<5); CREATININE FOR GFR 0.82 MG/DL (0.55-1.30); GLOMERULAR FILTRATION RATE > 60.0 (>51); GLUCOSE, FASTING 95 MG/DL (60-100); HDL CHOLESTEROL 56.3 MG/DL (>40); LDL CHOLESTEROL 111.3 MG/DL (<100); NON-HDL-C 132.7 MG/DL; POTASSIUM SERUM 4.6 MMOL/L (3.5-5.1); SODIUM LEVEL 143 MMOL/L (136-145); TOTAL PROTEIN 7.2 G/DL (5.7-8.2); TRIGLYCERIDES LEVEL 107 MG/DL (<150)
[2024-01-12 11:00] LABS: FREE T3 3.5 PG/ML (2.3-4.2)
== END ==
LOC: M PLALAB 07:18
PROVIDERS: ATTEND Family Medicine
DX: I10 Essential (primary) hypertension (principal); R53.83 Other fatigue; D64.9 Anemia, unspecified

== ENCOUNTER → 2024-02-01 | Outpatient (CLI) | payer BC | LOC: M RAD 11:05 | PROVIDERS: ATTEND Family Medicine | DX: M54.30 Sciatica, unspecified side (principal); M19.90 Unspecified osteoarthritis, unspecified site ==

== ENCOUNTER → 2024-12-08 | Outpatient (REF) | payer BC ==
[2024-12-10 15:03] LABS: HPV APTIMA Detected (Not Detected)
== END ==
LOC: M SFHCWAGY 13:09
PROVIDERS: ATTEND Nurse Practitioner Family
DX: Z12.4 Encounter for screening for malignant neoplasm of cervix (principal); R87.810 Cervical high risk human papillomavirus (HPV) DNA test positive; R87.610 Atypical squamous cells of undetermined significance on cytologic smear of cervix (ASC-US)

== ENCOUNTER → 2024-12-29 | Outpatient (CLI) | payer BC | LOC: M WHC 12:56 | PROVIDERS: ATTEND Nurse Practitioner Family | DX: N63.31 Unspecified lump in axillary tail of the right breast (principal); R59.0 Localized enlarged lymph nodes ==

== ENCOUNTER → 2025-02-09 | Outpatient (REF) | payer BC ==
[2025-02-09 16:25] LABS: BASO # 0.1 10^3/uL (0.0-0.2); BASO % 1.4 % (0.0-1.0); EOS # 0.6 10^3/uL (0.0-0.5); EOS % 10.9 % (0.0-3.0); LYMPH # 1.6 10^3/uL (1.5-5.0); LYMPH % 31.8 % (24.0-44.0); MONO # 0.5 10^3/uL (0.0-0.8); MONO % 9.5 % (2.0-8.0); NEUTROPHILS # 2.4 10^3/uL (1.5-8.5); NEUTROPHILS % 46.4 % (36.0-66.0); PLATELET COUNT, AUTOMATED 254 10^3/uL (150-450)
[2025-02-09 16:27] LABS: C REACTIVE PROTEIN QUANTITATIV < 0.50 MG/DL (<1.0); TOTAL 25(OH) VITAMIN D 80.6 NG/ML (20.0-100.0)
[2025-02-09 17:04] LABS: ALT/SGPT 38 U/L (7.0-40); AST/SGOT 29 U/L (<34); CALCIUM LEVEL 9.1 MG/DL (8.5-10.1); CARBON DIOXIDE LEVEL 31 MMOL/L (20-31); CHLORIDE LEVEL 102 MMOL/L (98-107); CHOLESTEROL LEVEL 177 MG/DL (<200); CHOLESTEROL RISK RATIO 2.62 (<5); CREATININE FOR GFR 0.96 MG/DL (0.55-1.30); FREE T4 1.02 NG/DL (0.89-1.76); GLOMERULAR FILTRATION RATE 70.8 (>51); LDL CHOLESTEROL 94.1 MG/DL (<100); NON-HDL-C 109.5 MG/DL; POTASSIUM SERUM 3.6 MMOL/L (3.5-5.1); SODIUM LEVEL 144 MMOL/L (136-145); TRIGLYCERIDES LEVEL 77 MG/DL (<150)
== END ==
LOC: M LAB REF 14:25
PROVIDERS: ATTEND Nurse Practitioner Family
DX: R53.83 Other fatigue (principal); M35.9 Systemic involvement of connective tissue, unspecified; E78.2 Mixed hyperlipidemia; E55.9 Vitamin D deficiency, unspecified

== ENCOUNTER → 2025-03-02 | Outpatient (CLI) | payer BC | LOC: M PLAIMG 11:44 | PROVIDERS: ATTEND Physician Assistant | DX: M51.360 Other intervertebral disc degeneration, lumbar region with discogenic back pain only (principal) ==

== ENCOUNTER → 2025-03-04 | Outpatient (CLI) | payer BC | LOC: M RAD 11:29 | PROVIDERS: ATTEND Physician Assistant | DX: M51.24 Other intervertebral disc displacement, thoracic region (principal) ==